=== PATIENT | male | born 1945 | race Caucasian/White ===

== ENCOUNTER 2016-09-26 20:05 | Observation (INO) ==
[2016-09-26 21:20] LABS: Basophils # 0.1 K/mcL (0.0-0.2); Basophils % 0.6 %; Eosinophils # 0.2 K/mcL (0.0-0.6); Eosinophils % 1.7 %; Hematocrit 25.9 % (37.5-50.1); Immature Granulocytes % 0.7 % (0-4); Lymphocytes # 1.7 K/mcL (0.6-4.6); Lymphocytes % 16.4 %; Mean Corpuscular HGB Conc 24.7 g/dL (31.6-35.5); Mean Corpuscular Hemoglobin 16.1 pg (28.0-33.3); Mean Corpuscular Volume 65.1 fL (83.0-100.0); Mean Platelet Volume 9.1 fL (9.4-12.4); Monocytes % 9.1 %; Neutrophils # 7.5 K/mcL (1.6-8.9); Nucleated Red Blood Cells 0.2 /100 WBC (0); Platelet Count 352 K/mcL (140-400); Red Blood Count 3.98 M/mcL (4.19-5.50); Red Cell Distribution Width 20.1 % (11.5-14.5); Segmented Neutrophils % 71.5 %
[2016-09-26 21:32] LABS: BUN/Creatinine Ratio 11 (6-26); Blood Urea Nitrogen 14 mg/dL (8-26); Calcium 9.1 mg/dL (8.6-10.8); Carbon Dioxide 24 mEq/L (19-29); Chloride 107 mEq/L (98-109); Glucose 90 mg/dL (70-99); Osmolality,Calculated 288 (280-300); Potassium 4.3 mEq/L (3.5-4.5); Sodium 139 mEq/L (136-145); eGFR For African Americans > 60 (> 60); eGFR For Non-African Americans 54 (> 60)
[2016-09-26 21:37] LABS: Hemoglobin 6.4 g/dL (12.9-16.9)
--- NOTE | 2016-09-26 21:40 | Emergency Department Note ---
Disposition Clinical Impression: Symptomatic anemia Abdominal aortic aneurysm Qualifiers: Presence of rupture: without rupture Qualified Code(s): I71.4 - Abdominal aortic aneurysm, without rupture Disposition: Admitted As Inpatient Condition: Good Referrals: Deborah Hodges MD [Primary Care Provider] - Forms: ED Satisfaction Letter Recheck wound or abnormal lab - General Chief Complaint: ED Recheck/Abnormal Lab/Rx Stated Complaint: Abnormal labs Time Seen by Provider: 09/26/16 21:09 Source: patient Mode of arrival: private vehicle Limitations: no limitations Nursing Notes Reviewed: Yes Vital Signs Reviewed: Yes - History of Present Illness HPI Narrative: 71-year-old male history of hypertension, CAD who presents to the ER with a chief complaint of abnormal labs. Patient states today he went to see his wood grainer who performed labs. States he was called because his blood levels were low. He reports for the last 2 weeks that he has felt dizzy as well as short of breath with activity. He states they thought it was his blood pressure medication and stopped it. He reports improvement of the dizziness but still had dyspnea on exertion. He denies any change of bowel function. Denies melena or hematochezia. He is not on any anticoagulation or antiplatelet therapy. No history of GI bleed or transfusion requirement in the past. No other complaints. Pt Subjective Complaint: abnormal lab(s) Initial Visit (ago): hour(s) Returns Today for: other (Abnormal lab value) Symptoms Since Prior Visit: no new symptoms Context: called for abnormal lab result Associated symptoms: shortness of breath - Related Data Home Medications Medication Instructions Recorded Confirmed No Known Home Drugs 09/26/16 09/26/16 Allergies Allergy/AdvReac Type Severity Reaction Status Date / Time No Known Allergies Allergy Verified 09/26/16 20:56 All systems ED: reviewed and negative except as stated. Constitutional: Denies: fever Cardiovascular: Reports: dyspnea on exertion. Denies: chest pain Respiratory: Reports: dyspnea. Denies: cough, wheezes Gastrointestinal: Denies: abdominal pain, nausea, vomiting Musculoskeletal: Denies: back pain, neck pain Past Medical History - Past Medical History Attestation: Yes The following information was validated with the patient. Source: patient Medical history: Reports: hypertension, renal disease Surgical history: Reports: non-contributory Psychiatric history: Reports: no psych history - Social History Smoking Status: Former smoker Smokeless Tobacco Status: No Alcohol use: Reports: none Drug use: Reports: none Physical Exam - General Limitations: no limitations General appearance: alert, in no apparent distress - Head Head exam: atraumatic, normocephalic, normal inspection - Eye Eye exam: Present: normal appearance - ENT ENT exam: normal exam - Neck Neck exam: Present: normal inspection - Chest Chest inspection: Present: normal inspection, symmetric chest wall rise - Respiratory Respiratory exam: Present: normal lung sounds bilaterally - Cardiovascular Cardiovascular exam: Present: regular rate, normal rhythm, normal heart sounds - Abdominal Exam Abdominal exam: Present: soft, Non-Tender. Absent: tenderness - Extremities Exam Extremities exam: Present: normal inspection, full ROM - Expanded Upper Extremity Exam Shoulder exam: Present: normal inspection, full ROM Arm exam: Present: normal inspection, full ROM Elbow exam: Present: normal inspection, full ROM Forearm/Wrist exam: Present: normal inspection, full ROM Hand exam: Present: normal inspection, full ROM - Expanded Lower Extremity Exam Hip/Pelvis exam: Present: normal inspection, full ROM Upper leg exam: Present: normal inspection, full ROM Knee exam: Present: normal inspection, full ROM Lower leg exam: Present: normal inspection, full ROM Ankle exam: Present: normal inspection, full ROM Foot/toe exam: Present: normal inspection, full ROM - Neurological Exam Neurological exam: Present: alert - Psychiatric Psychiatric exam: Present: normal affect, normal mood - Skin Skin exam: Present: warm, dry, intact, normal color Course Course Narrative: Patient seen and examined. Vital signs reviewed. His prior blood work shows a hemoglobin of 6.2. He was also stool occult positive at that time. We will order a unit of blood and repeat labs. Patient will require admission to the hospital. Vital Signs Temperature 99.0 F 09/26/16 20:31 Pulse Rate 81 09/26/16 20:31 Respiratory Rate 18 09/26/16 20:31 Blood Pressure 160/86 09/26/16 20:31 O2 Sat by Pulse Oximetry 96 09/26/16 20:31 Temperature 98.3 F 09/26/16 22:32 Pulse Rate 84 09/26/16 22:32 Respiratory Rate 18 09/26/16 22:32 Blood Pressure 152/78 09/26/16 22:32 O2 Sat by Pulse Oximetry 95 09/26/16 21:47 Oxygen Delivery Oxygen Delivery Room Air Recheck wound or abnormal lab - MDM Narrative Medical decision making narrative: 71-year-old male presents to the ER due to dyspnea on exertion and abnormal laboratories. Found to have a hemoglobin of 6.2 today. Stool occult positive for blood. He is not on any anticoagulation. Coags are normal. Given 1 unit of blood here in the ER. Accepted to the hospitalist service. - Lab Data Lab results reviewed: Yes I reviewed the patient's lab results. Result diagrams: 09/26/16 21:10 09/26/16 21:10 Lab Results 09/26/16 09/26/16 09/26/16 Range/Units 21:10 21:10 21:10 WBC 10.5 (4.3-11.1) K/mcL RBC 3.98 L (4.19-5.50) M/mcL Hgb 6.4 L (12.9-16.9) g/dL Hct 25.9 L (37.5-50.1) % MCV 65.1 L (83.0-100.0) fL MCH 16.1 L (28.0-33.3) pg MCHC 24.7 L (31.6-35.5) g/dL RDW 20.1 H (11.5-14.5) % Plt Count 352 (140-400) K/mcL MPV 9.1 L (9.4-12.4) fL Immature Gran % 0.7 (0-4) % Seg Neutrophils % 71.5 % Lymphocytes % 16.4 % Monocytes % 9.1 % Eosinophils % 1.7 % Basophils % 0.6 % Neutrophils # 7.5 (1.6-8.9) K/mcL Lymphocytes # 1.7 (0.6-4.6) K/mcL Monocytes # 1.0 (0.0-1.3) K/mcL Eosinophils # 0.2 (0.0-0.6) K/mcL Basophils # 0.1 (0.0-0.2) K/mcL Nucleated RBCs/100 WBC 0.2 H (0) /100 WBC Platelet Estimate Normal (Normal) Hypochromasia Present A (Not Present) Anisocytosis 2+ A (Not Present) Microcytosis Present A (Not Present) PT (9.4-12.1) Seconds INR Sodium 139 (136-145) mEq/L Potassium 4.3 (3.5-4.5) mEq/L Chloride 107 (98-109) mEq/L Carbon Dioxide 24 (19-29) mEq/L BUN 14 (8-26) mg/dL Creatinine 1.31 H (0.72-1.25) mg/dL Est GFR ( Amer) > 60 (> 60) Est GFR (Non-Af Amer) 54 L (> 60) BUN/Creatinine Ratio 11 (6-26) Glucose 90 (70-99) mg/dL Calculated Osmolality 288 (280-300) Calcium 9.1 (8.6-10.8) mg/dL Blood Type O POSITIVE Antibody Screen NEGATIVE Crossmatch See Detail 09/26/16 Range/Units 21:10 WBC (4.3-11.1) K/mcL RBC (4.19-5.50) M/mcL Hgb (12.9-16.9) g/dL Hct (37.5-50.1) % MCV (83.0-100.0) fL MCH (28.0-33.3) pg MCHC (31.6-35.5) g/dL RDW (11.5-14.5) % Plt Count (140-400) K/mcL MPV (9.4-12.4) fL Immature Gran % (0-4) % Seg Neutrophils % % Lymphocytes % % Monocytes % % Eosinophils % % Basophils % % Neutrophils # (1.6-8.9) K/mcL Lymphocytes # (0.6-4.6) K/mcL Monocytes # (0.0-1.3) K/mcL Eosinophils # (0.0-0.6) K/mcL Basophils # (0.0-0.2) K/mcL Nucleated RBCs/100 WBC (0) /100 WBC Platelet Estimate (Normal) Hypochromasia (Not Present) Anisocytosis (Not Present) Microcytosis (Not Present) PT 13.2 H (9.4-12.1) Seconds INR 1.2 Sodium (136-145) mEq/L Potassium (3.5-4.5) mEq/L Chloride (98-109) mEq/L Carbon Dioxide (19-29) mEq/L BUN (8-26) mg/dL Creatinine (0.72-1.25) mg/dL Est GFR ( Amer) (> 60) Est GFR (Non-Af Amer) (> 60) BUN/Creatinine Ratio (6-26) Glucose (70-99) mg/dL Calculated Osmolality (280-300) Calcium (8.6-10.8) mg/dL Blood Type Antibody Screen Crossmatch - Radiology Data Radiology results reviewed: Yes I reviewed the patient's radiology results. Abdomen/Pelvis CT 09/26/16 21:55 IMPRESSION: Diverticulosis coli without evidence of diverticulitis. Infrarenal abdominal aortic aneurysm. RECOMMENDATIONS: Managing Abdominal Aortic Aneurysms 2.6-2.9 cm: 5 year follow up. 3.0-3.4 cm: 3 year follow up 3.5-3.9 cm: 1 year follow up. 4.0-4.4 cm: 1 year follow up. Recommend vascular consultation. 4.5-5.4 cm: 6 month follow up. Recommend vascular consultation. Greater than or equal to 5.5 cm: Referral to vascular surgeon. Reference: Froylan et al. The care of patients with an abdominal aortic aneurysm: The Society of Vascular Surgery practice guidelines. Journal of Vascular Surgery. Vol 50, Number 85. Mu et al. Managing Incidental Findings on Abdominal and Pelvic CT and MRI, Part 2: White Paper of the ACR Incidental Findings Committee II on Vascular Findings. J Am Dru Radiol 2013;10:789-794 D/ / Romeo Garg MD / Romeo Garg MD Interpreting Provider: Romeo Garg MD Chest X-Ray 09/26/16 21:55 IMPRESSION: No acute abnormality detected D/ / Romeo Garg MD / Romeo Garg MD Interpreting Provider: Romeo Garg MD - EKG Data EKG attestation: Yes I reviewed and interpreted this EKG. EKG results narrative: EKG demonstrates sinus rhythm with rate of 82 bpm. Normal axis. NM interval 168 QRS duration [address] elevations or depressions. No acute ischemic findings. S.B.A.R. - S.B.A.R. Situation: Demographics, MOA Background: Presenting Complaint, Relevant PMH, Meds, & Allergies Assessment: Vital Signs, Course and respsone to treatment, Exam Concerns, Patient/Family Expectation, Pertinant Lab Results, Outstanding Labs Recommendation: Barrier(s) to disposition, Recommendation based on pending studies, treatments, or consults S.B.A.R. Report Given to: Hospitalist, request chest x-ray and CT scan of the abdomen and pelvis Attestation Statement - Attestation Attestation: I, Panfilo Sage MD, personally evaluated this patient and discussed their management with the resident physician. I reviewed the resident's note and agree with the documented findings, medical decision making, and plan of care. 71-year-old male presents to the emergency department with a complaint of anemia. Patient complains of increasing soreness of breath with exertion over the past 4-6 weeks. He also complains of dizziness with standing or moving around. No syncope. No GI bleed symptoms. No abnormal bruising or bleeding. He was apparently seen earlier today at an outside facility and had lab work and was found to have a hemoglobin of 6.2. He was called and advised come to the emergency department to receive blood transfusions. He also had a Hemoccult test today which was positive. He has a history of a colonoscopy several years ago with removal of multiple polyps. Patient states that he has no known prior history of anemia however he had lab work on month ago which showed a hemoglobin of 7.0. On examination patient is a well-developed well-nourished well-appearing male in no acute distress. He is alert and oriented 3. There is no cyanosis or diaphoresis. Breath sounds are clear and equal bilaterally. Heart regular rate and rhythm. Abdomen soft with normal bowel sounds. There is mild mid abdominal tenderness with no guarding or rebound tenderness. Labs reviewed. Hemoglobin here tonight is 6.4. The hospitalist was consulted and accepted admission of the patient. They did request a CT of the abdomen and pelvis and chest x-ray which was ordered.
[2016-09-26 21:45] LABS: Hypochromasia Present (Not Present); Microcytosis Present (Not Present); Platelet Estimate Normal (Normal)
[2016-09-26 21:46] LABS: Anisocytosis 2+ (Not Present)
[2016-09-26 21:50] LABS: INR 1.2; Prothrombin Time 13.2 Seconds (9.4-12.1)
[2016-09-26] MEDS ORDERED: 0.9 % Sodium Chloride 1,000 ML ONE (22:15)
[2016-09-26] MEDS ORDERED: Naloxone 0.4 MG/ML INJ IVP PRN (23:07)
--- NOTE | 2016-09-26 23:14 | Internal Med History&Physical ---
Date of Encounter: 09/26/16 Time of Encounter: 22:30 Assessment and Plan (1) JORGE (dyspnea on exertion) Current visit: Yes Status: Acute Secondary to symptomatic anemia. CXR negative. Please see further management of symptomatic anemia, below. Supplemental oxygen ordered PRN, but patient is saturating well at this time/in NAD. (2) Symptomatic anemia Current visit: Yes Status: Acute +fatigue and dyspnea on exertion. Hb 6.2. Transfuse 2 units of PRBCS. +Guaic stools suggestive of GI bleed. No serial hb/hct given chronicity of anemia (hb was 7.0 1 month ago). Check hb in the a.m. Consult GI for possible EGD/ Colonoscopy. (3) GI bleed Current visit: Yes Status: Acute No melanotic or bloody stools, but positive hemoccult stool in ED. Will treat as an upper GI bleed with 80 Protonix IV q12 hours, pending GI evaluation. Likely EGD/Colonoscopy, concern for possible colon cancer despite lack of constitutional symptoms. CT abd/pelvis reveals no mass. Transfuse PRBCs as per above. Qualifiers: GI bleed type/associated pathology: unspecified gastrointestinal hemorrhage type Qualified Code(s): K92.2 - Gastrointestinal hemorrhage, unspecified (4) Hypertension Current visit: Yes Status: Acute Not taking antihypertensives at home. Will order Hydralazine 10 mg IV q4 hours PRN. Qualifiers: Hypertension type: essential hypertension Qualified Code(s): I10 - Essential (primary) hypertension (5) CKD (chronic kidney disease) stage 3, GFR 30-59 ml/min Current visit: Yes Status: Acute avoid nephrotoxic agents Internal Medicine - H&P: HPI Chief complaint: shortness of breath on exertion Admitted From: Home Plans for Post Hospital Care: Home History of present illness: Mr. Gaming is a 71 year old male with PMH HTN, infrarenal aortic aneurysm, colonic polyps who presents with increasing shortness of breath on exertion and lightheadedness. Symptoms started a few months ago and son attributed this to "old age." He has been short of breath on walking 100+ feet or so uphill. No cough, chest pain or palpitations. No syncopal events. He was found to have a hemoglobin of 6.2. He was noted to have a hb of 7 on 08/25/16 (but no hemoglobin results available for comparison prior to this). He was hemoccult positive in the ED, but denies any dark stools, heartburn, bloody stools or any changes in his bowel movements. He also denies any appetite changes, weight loss or night sweats. No emesis. He was experiencing lightheadedness upon standing, but stopped taking his BP meds and this resolved. Past Med Surg Social Fam HX - Past Medical History Medical history: hypertension, renal disease Psychiatric history: no psych history - Past Surgical History Surgical History: non-contributory - Social History Smoking Status: Former smoker Smokeless Tobacco Status: No Alcohol use: none Drug use: none Internal Medicine - H&P: Meds No Known Home Drugs 09/26/16 [History] Allergies No Known Allergies Allergy (Verified 09/26/16 20:56) All Systems PM: A 10-system review of systems was performed and is negative for pertinent findings except as documented above in the HPI. - Constitutional Constitutional: as per HPI, fatigue, no anorexia, no excessive sweating - EENT Eyes: no blurry vision - Cardiovascular Cardiovascular ROS IM: as per HPI, dyspnea on exertion, lightheadedness, no chest pain, no edema Additional comments: on standing - Respiratory Respiratory: no cough, no wheezing - Gastrointestinal Gastrointestinal: as per HPI, no abdominal pain, no bloating, no change in bowel habits, no hematochezia, no melena - Neurological Neurological ROS: no abnormal gait - Constitutional Vitals: Temp Pulse Resp BP Pulse Ox 98.4 F 81 18 151/82 95 09/26/16 22:47 09/26/16 22:47 09/26/16 23:01 09/26/16 23:01 09/26/16 22:47 General appearance: Present: A&O X 3, pleasant, no acute distress, answers questions appropriately - Head Head exam: Present: atraumatic - ENT ENT exam: Present: mucous membranes moist - Neck Neck exam general surgery: Present: supple - Respiratory Respiratory exam: Present: CTAB - Cardiovascular Cardiovascular exam: Present: RRR, +S1, +S2 - GI/Abdominal GI/Abdominal exam: Present: normal bowel sounds, soft. Absent: mass, tenderness - Extremities Exam Extremities exam: Absent: pedal edema, tenderness - Psychiatric Psychiatric exam: Present: normal affect, normal mood Internal Med - H&P Results - Labs CBC & Chem 7: 09/26/16 21:10 09/26/16 21:10
[2016-09-26 23:25] LABS: % Iron Saturation 28 % (20-55); Iron 138 mcg/dL (65-175); Transferrin 353 mg/dL (174-364)
[2016-09-26 23:45] LABS: Ferritin 5 ng/ml (22-275)
[2016-09-27 01:05] LABS: Bilirubin,Urine Negative (Negative); Blood,Urine Negative (Negative); Clarity,Urine Clear (Clear); Color,Urine Yellow (Yellow); Glucose,Urine (UA) Normal (Normal); Ketones,Urine Negative (Negative); Leukocyte Esterase,Urine Negative (Negative); Nitrite,Urine Negative (Negative); Protein,Urine Negative (Neg-Trace); Specific Gravity,Urine 1.016 (1.010-1.025); Urobilinogen,Urine Normal (Normal)
[2016-09-27] MEDS ORDERED: 0.9 % Sodium Chloride 250 ML ONE (01:41)
[2016-09-27] MEDS ORDERED: Pantoprazole 80 MG in 0.9 % Sodium Chloride 50 ML IVPB SCH (06:00)
[2016-09-27] MEDS ORDERED: Pantoprazole 40 MG VIAL IVP SCH (06:00)
[2016-09-27 07:10] LABS: Alanine Aminotransferase 14 Units/L (0-55); Albumin 3.3 g/dL (3.5-5.0); Alkaline Phosphatase 56 Units/L (38-126); Aspartate Amino Transferase 24 Units/L (5-34); BUN/Creatinine Ratio 11 (6-26); Blood Urea Nitrogen 13 mg/dL (8-26); Carbon Dioxide 27 mEq/L (19-29); Chloride 108 mEq/L (98-109); Globulin 3.2 g/dL (2.4-3.5); Glucose 90 mg/dL (70-99); Osmolality,Calculated 292 (280-300); Potassium 4.2 mEq/L (3.5-4.5); Sodium 141 mEq/L (136-145); Total Protein 6.5 g/dL (6.0-8.3); eGFR For African Americans > 60 (> 60); eGFR For Non-African Americans > 60 (> 60)
[2016-09-27 07:19] LABS: Mean Platelet Volume 10.1 fL (9.4-12.4)
[2016-09-27 07:20] LABS: Basophils # 0.1 K/mcL (0.0-0.2); Basophils % 0.9 %; Eosinophils # 0.3 K/mcL (0.0-0.6); Eosinophils % 3.1 %; Hematocrit 29.2 % (37.5-50.1); Immature Granulocytes % 0.6 % (0-4); Lymphocytes # 2.1 K/mcL (0.6-4.6); Lymphocytes % 24.5 %; Mean Corpuscular HGB Conc 27.4 g/dL (31.6-35.5); Mean Corpuscular Hemoglobin 18.9 pg (28.0-33.3); Monocytes # 0.7 K/mcL (0.0-1.3); Neutrophils # 5.4 K/mcL (1.6-8.9); Platelet Count 325 K/mcL (140-400); Red Blood Count 4.23 M/mcL (4.19-5.50); Red Cell Distribution Width 24.1 % (11.5-14.5); Segmented Neutrophils % 62.9 %
[2016-09-27 07:51] LABS: Anisocytosis 2+ (Not Present); Hypochromasia Present (Not Present)
[2016-09-27 07:52] LABS: Microcytosis Present (Not Present); Polychromasia 1+ (Not Present)
--- NOTE | 2016-09-27 08:31 | Gastroenterology Consult Note ---
<Gabriela Jo - Last Filed: 09/27/16 11:36> Date of Encounter: 09/27/16 Time of Encounter: 10:35 - Assessment and plan (1) Symptomatic anemia Current Visit: Yes Status: Acute Assessment and plan: + hemoccult. EGD/Colon tomorrow to r/o esophagitis, gastritis, duodenitis, PUD, AVM, varices, tumor, polyps, diverticular bleeding, colitis, anorectal pathology. - Time Spent With Patient Total time spent is greater than 50% in coordination of care (as documented) at patient's floor/unit and/or counseling patient: less than 15 minutes GI History of Present Illness - Data of Consult Patient: new to practice Consult date: 09/27/16 Requesting Physician: Cesar Hall MD - Consult Narrative Reason for consult: anemia History of present illness: Mr. Gaming is a 71 year old male with PMH of HTN, infrarenal aortic aneurysm, colonic polyps who presents with increasing shortness of breath on exertion and lightheadedness. Symptoms started a few months ago and son attributed this to "old age." He has been short of breath on walking 100+ feet or so uphill. No cough, chest pain or palpitations. No syncopal events. He was found to have a hemoglobin of 6.2 after being evaluated by his PCP for these complaints. He was hemoccult positive in the ED, but denies any dark stools, heartburn, bloody stools or any changes in his bowel movements. He also denies any appetite changes, weight loss or night sweats. No emesis. He was experiencing lightheadedness upon standing, but stopped taking his BP meds and this resolved. Iron wnl. Patient receiving 3 units PRBC, currently hgb at 8.0. His last Cscope was with Dr. Merritt in 2013 which revealed numerous colonic polyps ranging from 2-8mm. He did have a 16mm tubulovillous adenoma removed at that time. Cscope also showed diverticulosis and internal hemorrhoids per the medical record. Patient denies black stools or blood noted in stools. He does admit intermittent epigastric abdominal pain. No other UGI symptoms admitted. Anemia was discovered by nephrology after PCP sent patient to icd 9 coder for kidney dysfunction, per the patient, icd 9 coder indicated kidneys were 'fine' and referred patient to ED when hgb came back so low. Colonoscopy: 2013 - [facility] - tubulovillous adenoma 16 mm, tubular adenomas 2-8mm EGD: None Past Med Surg Social Fam HX - Past Medical History Medical history: hypertension, renal disease Psychiatric history: no psych history - Past Surgical History Surgical History: non-contributory - Social History Smoking Status: Former smoker Smokeless Tobacco Status: No Alcohol use: none Drug use: none - Family History Sister Family Member Ethnicity: Non- Living Status: Still Living Hx Family Cardiac Disorders: Yes (Stroke) Mother Living Status: Age at : 70 Cause of : Old age Father Family Member Ethnicity: Non- Living Status: Age at : 86 Cause of : Old age - Gastrointestinal NSAID use: None noted Anticoagulation Use: None noted Number of BM Per Day: every day or two, can have 2 BM in one day Gastrointestinal: Present: abdominal pain - Constitutional Constitutional: fatigue - EENT Eyes: as per HPI Ears: Present: as per HPI Nose, mouth and throat: Present: as per HPI - Cardiovascular Cardiovascular ROS: Present: as per HPI - Respiratory Respiratory IM: Present: as per HPI - Neurological ROS Neurological GI: Present: as per HPI - Hematologic/Lymphatic Hematologic/Lymphatic pediatric: Present: as per HPI - Musculoskeletal Musculoskeletal ROS GI: Present: as per HPI - Integumentary Integumentary GI: Present: as per HPI - Psychiatric ROS Psychiatric GI: Present: as per HPI - Endocrine Endocrine IM: Present: as per HPI - Constitutional Vitals: Temp Pulse Resp BP Pulse Ox 98.1 F 76 15 161/87 97 09/27/16 07:00 09/27/16 07:00 09/27/16 07:00 09/27/16 07:00 09/27/16 07:00 General appearance: Present: cooperative, A&O X 3, no acute distress, answers questions appropriately - Head Head exam: Present: atraumatic, normocephalic - Eye Eye exam: Present: normal appearance, sclera anicteric - ENT ENT exam: Present: mucous membranes moist - Neck Neck exam general surgery: Present: normal inspection, trachea midline - Respiratory Respiratory exam: Present: CTAB - Cardiovascular Cardiovascular exam: Present: RRR, +S1, +S2 - GI/Abdominal GI/Abdominal exam: Present: normal bowel sounds, soft, no peritoneal signs - Rectal Rectal exam: Present: deferred - Extremities Exam Extremities exam: Present: warm - Neurological Exam Neurological exam: Present: no focal deficits - Psychiatric Psychiatric exam: Present: normal affect, normal mood - Skin Skin exam: Present: dry, intact, normal color, warm Results - Labs CBC & Chem 7: 09/27/16 06:25 09/27/16 06:25 Labs: Last Result Calcium 9.0 mg/dL (8.6-10.8) 09/27/16 06:25 Iron 138 mcg/dL (65-175) 09/26/16 21:10 % Saturation 28 % (20-55) 09/26/16 21:10 Transferrin 353 mg/dL (174-364) 09/26/16 21:10 Ferritin 5 ng/ml (22-275) L 09/26/16 21:10 Entire Visit Hgb 8.0 g/dL (12.9-16.9) L D 09/27/16 06:25 Hct 29.2 % (37.5-50.1) L 09/27/16 06:25 PT 13.2 Seconds (9.4-12.1) H 09/26/16 21:10 Ferritin 5 ng/ml (22-275) L 09/26/16 21:10 Total Bilirubin 1.0 mg/dL (0.2-1.2) 09/27/16 06:25 AST 24 Units/L (5-34) 09/27/16 06:25 ALT 14 Units/L (0-55) 09/27/16 06:25 - ABG ABG results: PT/INR, D-dimer PT 13.2 Seconds (9.4-12.1) H 09/26/16 21:10 Consult Discharge Plan - Plan Referrals: Deborah Hodges MD [Primary Care Provider] - 10/09/16 9:15 am (Please follow up as scehdule...) <James Ca - Last Filed: 09/27/16 17:50> Date of Encounter: 09/27/16 Time of Encounter: 18:00 - Time Spent With Patient Total time spent is greater than 50% in coordination of care (as documented) at patient's floor/unit and/or counseling patient: GI History of Present Illness - Data of Consult Requesting Physician: Cesar Hall MD - Consult Narrative History of present illness: Mr. Gaming is a 71 year old male - Constitutional Vitals: Temp Pulse Resp BP Pulse Ox 97.7 F 73 16 152/80 92 09/27/16 15:00 09/27/16 15:00 09/27/16 15:00 09/27/16 15:00 09/27/16 15:00 Results - Labs CBC & Chem 7: 09/27/16 15:42 09/27/16 06:25 Labs: Last Result Calcium 9.0 mg/dL (8.6-10.8) 09/27/16 06:25 Iron 138 mcg/dL (65-175) 09/26/16 21:10 % Saturation 28 % (20-55) 09/26/16 21:10 Transferrin 353 mg/dL (174-364) 09/26/16 21:10 Ferritin 5 ng/ml (22-275) L 09/26/16 21:10 Vitamin B12 197 pg/mL (213-816) L 09/27/16 06:25 Folate 11.7 ng/mL (7.0-31.4) 09/27/16 06:25 Entire Visit Hgb 8.2 g/dL (12.9-16.9) L 09/27/16 15:42 Hct 29.6 % (37.5-50.1) L 09/27/16 15:42 PT 13.2 Seconds (9.4-12.1) H 09/26/16 21:10 Ferritin 5 ng/ml (22-275) L 09/26/16 21:10 Total Bilirubin 1.0 mg/dL (0.2-1.2) 09/27/16 06:25 AST 24 Units/L (5-34) 09/27/16 06:25 ALT 14 Units/L (0-55) 09/27/16 06:25 Folate 11.7 ng/mL (7.0-31.4) 09/27/16 06:25 - ABG ABG results: PT/INR, D-dimer PT 13.2 Seconds (9.4-12.1) H 09/26/16 21:10 - Attending Attestation I examined this patient and my medical decision-making was reviewed with the Resident Physician. I agree with the documented findings, disposition and treatment plan as described except to the extent set forth below.
[2016-09-27 10:33] LABS: Folate 11.7 ng/mL (7.0-31.4)
--- NOTE | 2016-09-27 13:22 | Internal Med Progress Note ---
<Olivier Figueroa - Last Filed: 09/27/16 13:13> Date of Encounter: 09/27/16 Time of Encounter: 13:14 - Assessment and plan (1) JORGE (dyspnea on exertion) Current Visit: Yes Status: Acute Assessment and plan: dyspnea upon exertion likely secondary to symptomatic anemia from GI blood loss. Upon admission, patient had Hg of 6.4, s/p two units of PRBCs transfused. Patient remains stable currently. Plan: appreciate GI recommendations. Will re check H/H later this afternoon and continue to monitor. Continue clear liquid diet today. Will do colonoscopy prep today. EGD/colonoscopy tomorrow to evaluate GI bleed. (2) Symptomatic anemia Current Visit: Yes Status: Acute Assessment and plan: plan as above (3) GI bleed Current Visit: Yes Status: Acute Assessment and plan: plan as #1 above Qualifiers: GI bleed type/associated pathology: unspecified gastrointestinal hemorrhage type Qualified Code(s): K92.2 - Gastrointestinal hemorrhage, unspecified (4) Hypertension Current Visit: Yes Status: Acute Assessment and plan: patient states he has a history of hypertension but patient stopped taking all of his medications. pharmacy attempting to find out what his home medication he takes, and will resume. continue hydralazine PRN Qualifiers: Hypertension type: essential hypertension Qualified Code(s): I10 - Essential (primary) hypertension (5) CKD (chronic kidney disease) stage 3, GFR 30-59 ml/min Current Visit: Yes Status: Acute Assessment and plan: Stable. continue to monitor (6) DVT prophylaxis Current Visit: Yes Status: Acute Assessment and plan: EPCDs - Subjective Interval history: 71 year old male evaluated at bedside. Patient had no acute events overnight. He was admitted for GI bleed with hemoccult positive stools and low hemoglobin. patient denies having blood in his stools and denies having dark/tarry stools. he denies taking ibuprofen, denies history of alcohol abuse or history of cirrhosis. he states his last colonoscopy was about two years ago and he had several polyps remove at that time. Today he says he feels ok. He denies nausea , vomiting, diarrhea, fever, chills. HE denies shortness of breath at rest. - Constitutional Vitals: Temp Pulse Resp BP Pulse Ox 97.9 F 75 16 161/81 96 09/27/16 11:00 09/27/16 11:00 09/27/16 11:00 09/27/16 11:00 09/27/16 11:00 General appearance: Present: A&O X 3, pleasant, no acute distress, answers questions appropriately - Head Head exam: Present: atraumatic, normocephalic - Neck Neck exam general surgery: Present: supple, trachea midline - Respiratory Respiratory exam: Present: CTAB - Cardiovascular Cardiovascular exam: Present: RRR, +S1, +S2 - GI/Abdominal GI/Abdominal exam: Present: normal bowel sounds, soft. Absent: distended Additional comments: mild epigastric tenderness upon palpation. - Extremities Exam Extremities exam: Absent: cyanotic, pedal edema - Neurological Exam Neurological exam: Present: alert, oriented X3, no focal deficits - Psychiatric Psychiatric exam: Present: normal affect, normal mood Internal Medicine: Result - Labs CBC & Chem 7: 09/27/16 06:25 09/27/16 06:25 Labs: Short CBC 09/27/16 Range/Units 06:25 WBC 8.6 (4.3-11.1) K/mcL Hgb 8.0 L D (12.9-16.9) g/dL Hct 29.2 L (37.5-50.1) % Plt Count 325 (140-400) K/mcL Neutrophils # 5.4 (1.6-8.9) K/mcL BMP 09/27/16 06:25 Sodium 141 Potassium 4.2 Chloride 108 Carbon Dioxide 27 BUN 13 Creatinine 1.16 Glucose 90 Calcium 9.0 Liver Function 09/27/16 Range/Units 06:25 Total Bilirubin 1.0 (0.2-1.2) mg/dL AST 24 (5-34) Units/L ALT 14 (0-55) Units/L Alkaline Phosphatase 56 (38-126) Units/L Albumin 3.3 L (3.5-5.0) g/dL Urine 09/26/16 Range/Units 23:09 Urine Color Yellow (Yellow) Urine Clarity Clear (Clear) Urine pH 6.0 (5.0-8.0) pH Units Ur Specific [place] 1.016 (1.010-1.025) Urine Protein Negative (Neg-Trace) mg/dL Urine Glucose (UA) Normal (Normal) mg/dL - ABG Interpretation ABG results: PT/INR, D-dimer PT 13.2 Seconds (9.4-12.1) H 09/26/16 21:10 Consult Discharge Plan - Plan Referrals: Deborah Hodges MD [Primary Care Provider] - 10/09/16 9:15 am (Please follow up as scelotus...) <Cesar Hall T - Last Filed: 09/27/16 15:30> Date of Encounter: 09/27/16 - Constitutional Vitals: Temp Pulse Resp BP Pulse Ox 97.9 F 75 16 161/81 96 09/27/16 11:00 09/27/16 11:00 09/27/16 11:00 09/27/16 11:00 09/27/16 11:00 Internal Medicine: Result - Labs CBC & Chem 7: 09/27/16 06:25 09/27/16 06:25 Labs: Short CBC 09/27/16 Range/Units 06:25 WBC 8.6 (4.3-11.1) K/mcL Hgb 8.0 L D (12.9-16.9) g/dL Hct 29.2 L (37.5-50.1) % Plt Count 325 (140-400) K/mcL Neutrophils # 5.4 (1.6-8.9) K/mcL BMP 09/27/16 06:25 Sodium 141 Potassium 4.2 Chloride 108 Carbon Dioxide 27 BUN 13 Creatinine 1.16 Glucose 90 Calcium 9.0 Liver Function 09/27/16 Range/Units 06:25 Total Bilirubin 1.0 (0.2-1.2) mg/dL AST 24 (5-34) Units/L ALT 14 (0-55) Units/L Alkaline Phosphatase 56 (38-126) Units/L Albumin 3.3 L (3.5-5.0) g/dL Urine 09/26/16 Range/Units 23:09 Urine Color Yellow (Yellow) Urine Clarity Clear (Clear) Urine pH 6.0 (5.0-8.0) pH Units Ur Specific [place] 1.016 (1.010-1.025) Urine Protein Negative (Neg-Trace) mg/dL Urine Glucose (UA) Normal (Normal) mg/dL - ABG Interpretation ABG results: PT/INR, D-dimer PT 13.2 Seconds (9.4-12.1) H 09/26/16 21:10 - Attending Attestation I examined this patient and my medical decision-making was reviewed with the Resident Physician on 09/27/16. I agree with the documented findings, disposition and treatment plan as described except to the extent set forth below. 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
[2016-09-27 15:58] LABS: Basophils % 0.9 %; Hemoglobin 8.2 g/dL (12.9-16.9); Lymphocytes % 28.2 %; Mean Platelet Volume 9.3 fL (9.4-12.4)
[2016-09-27 16:00] LABS: Basophils # 0.1 K/mcL (0.0-0.2); Eosinophils # 0.3 K/mcL (0.0-0.6); Eosinophils % 3.4 %; Hematocrit 29.6 % (37.5-50.1); Immature Granulocytes % 0.6 % (0-4); Lymphocytes # 2.2 K/mcL (0.6-4.6); Mean Corpuscular HGB Conc 27.7 g/dL (31.6-35.5); Mean Corpuscular Hemoglobin 19.2 pg (28.0-33.3); Mean Corpuscular Volume 69.2 fL (83.0-100.0); Monocytes # 0.8 K/mcL (0.0-1.3); Monocytes % 10.4 %; Neutrophils # 4.5 K/mcL (1.6-8.9); Nucleated Red Blood Cells 0.3 /100 WBC (0); Platelet Count 296 K/mcL (140-400); Red Blood Count 4.28 M/mcL (4.19-5.50); Red Cell Distribution Width 24.4 % (11.5-14.5); Segmented Neutrophils % 56.5 %
[2016-09-27] MEDS: Pantoprazole 40 MG VIAL IVP SCH (16:35)
[2016-09-27 16:50] LABS: Anisocytosis 2+ (Not Present); Hypochromasia Present (Not Present); Microcytosis Present (Not Present); Polychromasia 1+ (Not Present)
[2016-09-27] MEDS ORDERED: Polyethylene Glycol 3350 255 GM POWDER PO ONE (17:00)
--- NOTE | 2016-09-27 21:55 | Electrocardiograph Report ---
[place] [id number] Test Date: 2016-09-26 Pat Name: Lukas Gaming Department: [id number] Room: 2A22 Gender: M Felt Puller: TONIA : 1945 Requested By: Panfilo Sage Order Number: [id number] Reading MD: Karena Parekh Measurements Intervals [place] Rate: 82 P: 63 RI: 168 QRS: 32 QRSD: 102 T: 47 QT: 375 QTc: 414 Interpretive Statements SINUS RHYTHM Electronically Signed On 09-27-2016 21:54:11 EDT by Karena Parekh
[2016-09-28 04:13] LABS: Hematocrit 29.7 % (37.5-50.1); Hemoglobin 8.1 g/dL (12.9-16.9); Immature Granulocytes % 0.5 % (0-4); Mean Corpuscular HGB Conc 27.3 g/dL (31.6-35.5); Mean Corpuscular Hemoglobin 18.8 pg (28.0-33.3)
[2016-09-28 04:14] LABS: Basophils # 0.1 K/mcL (0.0-0.2); Basophils % 0.6 %; Eosinophils # 0.4 K/mcL (0.0-0.6); Eosinophils % 4.4 %; Lymphocytes # 1.9 K/mcL (0.6-4.6); Mean Corpuscular Volume 68.9 fL (83.0-100.0); Mean Platelet Volume 9.6 fL (9.4-12.4); Monocytes # 0.8 K/mcL (0.0-1.3); Monocytes % 9.3 %; Neutrophils # 5.2 K/mcL (1.6-8.9); Platelet Count 303 K/mcL (140-400); Red Blood Count 4.31 M/mcL (4.19-5.50); Red Cell Distribution Width 24.5 % (11.5-14.5); Segmented Neutrophils % 62.2 %
[2016-09-28 04:21] LABS: BUN/Creatinine Ratio 8 (6-26); Blood Urea Nitrogen 10 mg/dL (8-26); Carbon Dioxide 27 mEq/L (19-29); Chloride 108 mEq/L (98-109); Glucose 92 mg/dL (70-99); Osmolality,Calculated 289 (280-300); Potassium 4.4 mEq/L (3.5-4.5); Sodium 140 mEq/L (136-145); eGFR For African Americans > 60 (> 60); eGFR For Non-African Americans > 60 (> 60)
[2016-09-28 04:52] LABS: Anisocytosis 2+ (Not Present); Hypochromasia Present (Not Present); Microcytosis Present (Not Present); Platelet Estimate Normal (Normal); Poikilocytosis 1+ (Not Present)
[2016-09-28] MEDS: Pantoprazole 40 MG VIAL IVP SCH (05:49)
[2016-09-28] MEDS ORDERED: *HR* Midazolam HCl 5 MG/5 ML VIAL IVP ONE ×2 (06:35→06:59)
[2016-09-28] MEDS ORDERED: *HR* FentaNYL (PF) 100 MCG/2 ML VIAL ONE ×2 (06:35→07:00)
[2016-09-28] MEDS: *HR* FentaNYL (PF) 100 MCG/2 ML VIAL IVP PRN ×2 (07:20→09:30)
[2016-09-28] MEDS: *HR* Midazolam HCl 5 MG/5 ML VIAL IVP PRN ×2 (07:20→09:30)
[2016-09-28] MEDS ORDERED: Simethicone 40 MG/0.6 ML MLS IR ONE (07:21)
[2016-09-28] MEDS ORDERED: Tetracaine/Benzocaine/Butamben 200MG/SPRAY (100SPY/BOT) MM ONE (07:21)
--- NOTE | 2016-09-28 07:22 | Pre-Sedation Evaluation ---
Pre-sedation evaluation - Pre-sedation checklist Date of procedure: 09/28/16 Procedure: egd colonoscopy Recent Vitals: Last Vital Signs Temp 98.0 F 09/28/16 07:07 Pulse 80 09/28/16 07:07 Resp 17 09/28/16 07:07 BP 181/90 09/28/16 07:07 Pulse Ox 98 09/28/16 07:07 H&P (including ROS) documented in medical record: Yes Previous reaction to sedatives/anesthetics: No Dietary Status: NPO after Midnight Dentition: dentures removed ASA Classification *see protocol: CLASS III-Severe systemic disease Plan of Care: Pt appropriate candidate for procedure/moderate/conscious sedation , Risks/benefits of procedure/sedation discussed w/ patient/family
[2016-09-28] MEDS: Cyanocobalamin (B-12) 1,000 MCG TABLET PO SCH (12:11)
--- NOTE | 2016-09-28 13:12 | Internal Med Progress Note ---
<JobyusOlivier - Last Filed: 09/28/16 13:10> Date of Encounter: 09/28/16 Time of Encounter: 13:10 - Assessment and plan (1) JORGE (dyspnea on exertion) Current Visit: Yes Status: Acute Assessment and plan: dyspnea upon exertion likely secondary to symptomatic anemia from GI blood loss. Upon admission, patient had Hg of 6.4, s/p two units of PRBCs transfused. Patient remains stable currently. EGD showed normal esophagus and two non bleeding angioectasias in stomach that was treated with argon plasma coagulation, normal duodenum. colonoscopy showed three 10mm non bleeding polyps at hepatic flexure that were removed, diverticulosis. biopsies pending. Plan: will re check H/H later this afternoon and continue to monitor. will monitor overnight for acute changes in H/H or signs of rebleeding. discharge tomorrow. continue B12, iron supplementation. (2) Symptomatic anemia Current Visit: Yes Status: Acute Assessment and plan: plan as above (3) GI bleed Current Visit: Yes Status: Acute Assessment and plan: plan as #1 above Qualifiers: GI bleed type/associated pathology: unspecified gastrointestinal hemorrhage type Qualified Code(s): K92.2 - Gastrointestinal hemorrhage, unspecified (4) Hypertension Current Visit: Yes Status: Acute Assessment and plan: patient states he has a history of hypertension but patient stopped taking all of his medications. continue lisinopril continue hydralazine PRN Qualifiers: Hypertension type: essential hypertension Qualified Code(s): I10 - Essential (primary) hypertension (5) CKD (chronic kidney disease) stage 3, GFR 30-59 ml/min Current Visit: Yes Status: Acute Assessment and plan: Stable. continue to monitor (6) DVT prophylaxis Current Visit: Yes Status: Acute Assessment and plan: EPCDs - Subjective Interval history: 71 year old male evaluated at bedside. Patient had no acute events overnight. Patient had EGD/colonoscopy this morning and he tolerated the procedure well. Patient was eating breakfast upon examination. He del nausea, vomiting, dairhea, fever, chills, chest pain, and shortness of breath. He denies any complaints today. - Constitutional Vitals: Temp Pulse Resp BP Pulse Ox 97.9 F 78 16 131/65 96 09/28/16 11:18 09/28/16 11:18 09/28/16 11:18 09/28/16 11:18 09/28/16 11:18 General appearance: Present: A&O X 3, pleasant, no acute distress, answers questions appropriately - Head Head exam: Present: atraumatic, normocephalic - Eye Additional comments: conjunctival pallor present. - ENT ENT exam: Present: mucous membranes moist - Neck Neck exam general surgery: Present: supple, trachea midline - Respiratory Respiratory exam: Present: CTAB - Cardiovascular Cardiovascular exam: Present: RRR, +S1, +S2 - GI/Abdominal GI/Abdominal exam: Present: normal bowel sounds, soft. Absent: distended, tenderness - Extremities Exam Extremities exam: Absent: cyanotic, pedal edema - Neurological Exam Neurological exam: Present: alert, oriented X3, no focal deficits - Skin Skin exam: Present: intact Internal Medicine: Result - Labs CBC & Chem 7: 09/28/16 03:50 09/28/16 03:50 Labs: Short CBC 09/27/16 09/28/16 Range/Units 15:42 03:50 WBC 7.9 8.4 (4.3-11.1) K/mcL Hgb 8.2 L 8.1 L (12.9-16.9) g/dL Hct 29.6 L 29.7 L (37.5-50.1) % Plt Count 296 303 (140-400) K/mcL Neutrophils # 4.5 5.2 (1.6-8.9) K/mcL BMP 09/28/16 03:50 Sodium 140 Potassium 4.4 Chloride 108 Carbon Dioxide 27 BUN 10 Creatinine 1.18 Glucose 92 Calcium 9.0 - ABG Interpretation ABG results: PT/INR, D-dimer PT 13.2 Seconds (9.4-12.1) H 09/26/16 21:10 Consult Discharge Plan - Plan Referrals: Deborah Hodges MD [Primary Care Provider] - 10/09/16 9:15 am (Please follow up as scehdule...) <Cesar Hall - Last Filed: 09/28/16 16:13> Date of Encounter: 09/28/16 - Constitutional Vitals: Temp Pulse Resp BP Pulse Ox 98.2 F 74 18 144/76 96 09/28/16 15:40 09/28/16 15:40 09/28/16 15:40 09/28/16 15:40 09/28/16 15:40 Internal Medicine: Result - Labs CBC & Chem 7: 09/28/16 03:50 09/28/16 03:50 Labs: Short CBC 09/27/16 09/28/16 Range/Units 15:42 03:50 WBC 8.4 (4.3-11.1) K/mcL Hgb 8.1 L (12.9-16.9) g/dL Hct 29.7 L (37.5-50.1) % Plt Count 303 (140-400) K/mcL Neutrophils # 4.5 5.2 (1.6-8.9) K/mcL BMP 09/28/16 03:50 Sodium 140 Potassium 4.4 Chloride 108 Carbon Dioxide 27 BUN 10 Creatinine 1.18 Glucose 92 Calcium 9.0 - ABG Interpretation ABG results: PT/INR, D-dimer PT 13.2 Seconds (9.4-12.1) H 09/26/16 21:10 - Attending Attestation I examined this patient and my medical decision-making was reviewed with the Resident Physician on 09/28/16. I agree with the documented findings, disposition and treatment plan as described except to the extent set forth below. 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 colonoscopy showed three 10mm non bleeding polyps at hepatic flexure that were removed, diverticulosis. biopsies pending. his HB has remained stable, his BP is controlled on lisinopril Monitor for 24 hrs post-EGD RPt Hb a.m Anticipate discharge a.m Rest of details as in resident physician's documentation
[2016-09-28 16:05] LABS: Hemoglobin 8.3 g/dL (12.9-16.9); Mean Platelet Volume 9.4 fL (9.4-12.4); Red Cell Distribution Width 24.8 % (11.5-14.5)
[2016-09-28 16:07] LABS: Basophils # 0.1 K/mcL (0.0-0.2); Eosinophils # 0.3 K/mcL (0.0-0.6); Eosinophils % 3.5 %; Immature Granulocytes % 0.3 % (0-4); Lymphocytes % 21.1 %; Mean Corpuscular HGB Conc 26.8 g/dL (31.6-35.5); Mean Corpuscular Hemoglobin 18.8 pg (28.0-33.3); Mean Corpuscular Volume 70.3 fL (83.0-100.0); Monocytes % 10.2 %; Neutrophils # 4.7 K/mcL (1.6-8.9); Nucleated Red Blood Cells 0.3 /100 WBC (0); Platelet Count 313 K/mcL (140-400); Red Blood Count 4.41 M/mcL (4.19-5.50); Segmented Neutrophils % 63.9 %
[2016-09-28 16:12] LABS: Lymphocytes # 1.5 K/mcL (0.6-4.6); Monocytes # 0.7 K/mcL (0.0-1.3)
[2016-09-28 16:26] LABS: Anisocytosis 3+ (Not Present); Hypochromasia Present (Not Present); Microcytosis Present (Not Present); Platelet Estimate Normal (Normal); Polychromasia 1+ (Not Present)
[2016-09-29 05:06] LABS: Lymphocytes % 19.9 %
[2016-09-29 05:08] LABS: Basophils # 0.1 K/mcL (0.0-0.2); Basophils % 0.9 %; Eosinophils # 0.3 K/mcL (0.0-0.6); Eosinophils % 3.3 %; Hematocrit 31.5 % (37.5-50.1); Hemoglobin 8.5 g/dL (12.9-16.9); Immature Granulocytes % 0.5 % (0-4); Mean Corpuscular Hemoglobin 18.7 pg (28.0-33.3); Mean Corpuscular Volume 69.4 fL (83.0-100.0); Mean Platelet Volume 9.8 fL (9.4-12.4); Monocytes # 0.8 K/mcL (0.0-1.3); Neutrophils # 6.7 K/mcL (1.6-8.9); Platelet Count 316 K/mcL (140-400); Red Blood Count 4.54 M/mcL (4.19-5.50); Red Cell Distribution Width 25.6 % (11.5-14.5); Segmented Neutrophils % 67.4 %
[2016-09-29 05:27] LABS: BUN/Creatinine Ratio 9 (6-26); Blood Urea Nitrogen 11 mg/dL (8-26); Calcium 9.3 mg/dL (8.6-10.8); Carbon Dioxide 26 mEq/L (19-29); Chloride 105 mEq/L (98-109); Glucose 93 mg/dL (70-99); Osmolality,Calculated 287 (280-300); Potassium 4.1 mEq/L (3.5-4.5); Sodium 139 mEq/L (136-145); eGFR For African Americans > 60 (> 60); eGFR For Non-African Americans 55 (> 60)
[2016-09-29 05:47] LABS: Anisocytosis 3+ (Not Present); Hypochromasia Present (Not Present)
[2016-09-29 05:48] LABS: Microcytosis Present (Not Present); Platelet Estimate Normal (Normal); Polychromasia 1+ (Not Present)
--- NOTE | 2016-09-29 06:36 | Discharge Summary ---
<CarolinaOlivier - Last Filed: 09/29/16 06:27> Date of Encounter: 09/29/16 Time of Encounter: 06:28 - Discharge Diagnosis (1) JORGE (dyspnea on exertion) Priority: Primary Status: Acute (2) Symptomatic anemia Priority: Secondary Status: Acute (3) GI bleed Priority: Secondary Status: Acute Qualifiers: GI bleed type/associated pathology: unspecified gastrointestinal hemorrhage type Qualified Code(s): K92.2 - Gastrointestinal hemorrhage, unspecified (4) Hypertension Priority: Secondary Status: Acute Qualifiers: Hypertension type: essential hypertension Qualified Code(s): I10 - Essential (primary) hypertension (5) CKD (chronic kidney disease) stage 3, GFR 30-59 ml/min Priority: Secondary Status: Acute (6) DVT prophylaxis Priority: Secondary Status: Acute - Discharge Medications Prescriptions: Cyanocobalamin (B-12) [Vitamin B12] 1,000 mcg PO DAILY #30 tab Docusate [Colace] 100 mg PO BID PRN #60 tab PRN Reason: Constipation Ferrous Sulfate 325 mg PO BIDWM #60 tab Lisinopril [Zestril] 10 mg PO DAILY #30 tab Home Medications: Cyanocobalamin (B-12) [Vitamin B12] 1,000 mcg PO DAILY #30 tab 09/29/16 [Rx] Docusate [Colace] 100 mg PO BID PRN #60 tab 09/29/16 [Rx] Ferrous Sulfate 325 mg PO BIDWM #60 tab 09/29/16 [Rx] Lisinopril [Zestril] 10 mg PO DAILY #30 tab 09/29/16 [Rx] Allergies/Adverse Reactions: Allergies No Known Allergies Allergy (Verified 09/26/16 20:56) Date of admission: 09/26/16 22:47 Primary care physician: Deborah Hodges Consults: 09/26/16 22:59 Consult to Gastroenterology [CONS] Routine Consulting Provider: Gastroentershelton Kolb Reason for Consult: GI bleed Call Completed: No 09/26/16 23:08 Consult to [employer] [CONS] Routine Reason for SW Consult: dc planning - Patient Status Disposition: Home, Self-Care Condition: Good Functional capacity at discharge: independent ambulation Overall status at discharge: patient is progressing back to baseline - Discharge Instructions Instructions: Anemia (GEN) Follow Up With: Deborah Hodges MD [Primary Care Provider] - 10/09/16 9:15 am (Please follow up as scehdule...) Additional Instructions: Take iron, B12 supplements and blood pressure medicine as prescribed until follow up with primary care doctor follow up with primary care doctor within 1 week of discharge please return to emergency department if you develop bloody stools, shortness of breath, or chest pain. - Diet and Activity Activity: increase activity as tolerated Diet: low fat, low cholesterol, low salt diet Hospital course: Mr. Gaming is a 71 year old male with PMHx of HTN, infrarenal aortic aneurysm, CKD stage 3. Patient presented to emergency department at [facility] on 09/26/16 with chief complaint of dyspnea on exertion and lightheadedness. He had a positive stool occult blood and Hg of 6.4 and was admitted for further workup. Patient had total of 2 units of packed red blood cells transfused and had EGD/ colonoscopy done while inpatient. EGD showed two non bleeding angioectasias at the gastric body which were coagulated. Colonoscopy showed three sessile non bleeding polyps at the hepatic flexure that were removed, pathology report pending. There was also diverticulosis present in the sigmoid colon, recommendation is repeat colonoscopy in 3 years for surveillance. Patient was monitored after his procedure for any further signs of bleeding. He was started on iron and B12 supplements. Of note, patient stated that he stopped taking all of his medications several months ago, and was educated on the importance of medication compliance in setting of his CKD and hypertension. Patient had no further signs of bleeding or anemia after his procedure. He was stable throughout the course of his hospital stay and remained stable until discharge. Take iron, B12 supplements and blood pressure medicine as prescribed until follow up with primary care doctor follow up with primary care doctor within 1 week of discharge please return to emergency department if you develop bloody stools, shortness of breath, or chest pain. repeat colonoscopy in three years recommended. - Time Spent with Patient Total time spent providing and/or coordinating discharge services: - Constitutional Vitals: Temp Pulse Resp BP Pulse Ox 98.1 F 77 16 150/75 92 09/29/16 05:02 09/29/16 05:02 09/29/16 05:02 09/29/16 05:02 09/29/16 05:02 General appearance: Present: A&O X 3, pleasant, no acute distress, answers questions appropriately - Head Head exam: Present: atraumatic, normocephalic - Eye Additional comments: mild conjunctival pallor - Neck Neck exam general surgery: Present: supple, trachea midline - Respiratory Respiratory exam: Present: CTAB - Cardiovascular Cardiovascular exam: Present: RRR, +S1, +S2 - GI/Abdominal Additional comments: firm, non distended, non tender, positive bowel sounds - Extremities Exam Extremities exam: Absent: cyanotic, pedal edema - Neurological Exam Neurological exam: Present: alert, oriented X3, no focal deficits - Psychiatric Psychiatric exam: Present: normal affect, normal mood - Skin Skin exam: Present: intact <Luis Miguel Henry - Last Filed: 09/29/16 16:08> Date of Encounter: 09/29/16 - Discharge Diagnosis (1) 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 Priority: Primary Status: Acute (2) Posthemorrhagic anemia Priority: Primary Status: Acute (3) CKD (chronic kidney disease) stage 3, GFR 30-59 ml/min Status: Chronic (4) Hypertension Status: Chronic Qualifiers: Hypertension type: essential hypertension Qualified Code(s): I10 - Essential (primary) hypertension (5) JORGE (dyspnea on exertion) Priority: Primary Status: Acute (6) Abdominal aortic aneurysm Priority: Secondary Status: Chronic Qualifiers: Presence of rupture: without rupture Qualified Code(s): I71.4 - Abdominal aortic aneurysm, without rupture Date of admission: 09/26/16 22:47 Primary care physician: Deborah Hodges Consults: 09/26/16 22:59 Consult to Gastroenterology [CONS] Routine Consulting Provider: Gastroenterology Kennedi Reason for Consult: GI bleed Call Completed: No 09/26/16 23:08 Consult to [employer] [CONS] Routine Reason for SW Consult: dc planning Hospital course: Mr. Gaming is a 71 year old male - Time Spent with Patient Total time spent providing and/or coordinating discharge services: 32 min - Constitutional Vitals: Temp Pulse Resp BP Pulse Ox 98.1 F 83 16 148/74 95 09/29/16 07:33 09/29/16 07:33 09/29/16 07:33 09/29/16 07:33 09/29/16 08:12 - Attending Attestation I examined this patient and my medical decision-making was reviewed with the Resident Physician on 09/29/16. I agree with the documented findings, disposition and treatment plan as described except to the extent set forth below. Mr. Gaming originally admitted for acute symptomatic anemia. Underwent endoscopy and found to have AVMs and cauterized. Today he feels well. He is afebrile with stable vitals and is ready for discharge home. Exam Alert. Comfortable Mucus membranes moist Heart reg No wheeze Abd soft No edema Plan D/C home today. Follow up as outpatient.
[2016-09-29 07:36] VITALS: BP 148/74
[2016-09-29] MEDS: Cyanocobalamin (B-12) 1,000 MCG TABLET PO SCH (08:51)
== END 2016-09-29 10:04 | disposition home or self-care (01) ==
LOC: EMEROO 20:05 → 2ANU 20:05 → SUATTDRO 22:47 → 2ANU 23:02
PROVIDERS: ADMIT Family Medicine; ATTEND Internal Medicine

== ENCOUNTER 2020-05-13 17:09 | Observation (INO) ==
[2020-05-13] MEDS ORDERED: Naloxone 0.4 MG/ML INJ IVP PRN (22:10)
[2020-05-13] MEDS: lisinopriL 20 MG TABLET PO SCH (22:47)
[2020-05-13 23:10] LABS: VBG HCO3 24 mEq/L (21-27); VBG PCO2 42 mmHg (41-51); VBG PH 7.36 pH Units (7.32-7.42); VBG PO2 68 mmHg (25-50)
[2020-05-14 03:04] LABS: Basophils # 0.1 K/mcL (0.0-0.2); Basophils % 0.8 %; Eosinophils # 0.2 K/mcL (0.0-0.6); Eosinophils % 2.1 %; Hematocrit 45.4 % (37.5-50.1); Hemoglobin 14.7 g/dL (12.9-16.9); Immature Granulocytes % 0.3 % (0-4); Lymphocytes # 1.8 K/mcL (0.6-4.6); Lymphocytes % 19.8 %; Mean Corpuscular HGB Conc 32.4 g/dL (31.6-35.5); Mean Corpuscular Hemoglobin 31.1 pg (28.0-33.3); Mean Platelet Volume 9.9 fL (9.4-12.4); Monocytes # 0.9 K/mcL (0.0-1.3); Monocytes % 9.4 %; Neutrophils # 6.3 K/mcL (1.6-8.9); Platelet Count 229 K/mcL (140-400); Red Blood Count 4.73 M/mcL (4.19-5.50); Red Cell Distribution Width 12.1 % (11.5-14.5); Segmented Neutrophils % 67.6 %; White Blood Count 9.3 K/mcL (4.3-11.1)
[2020-05-14 03:11] LABS: INR 1.2; Prothrombin Time 13.4 Seconds (9.4-12.1)
[2020-05-14 03:14] LABS: Activated Partial Thrombo Time 31.2 Seconds (26.0-36.0)
[2020-05-14 03:24] LABS: BUN/Creatinine Ratio 13 (6-26); Blood Urea Nitrogen 12 mg/dL (8-23); Calcium 9.2 mg/dL (8.6-10.3); Carbon Dioxide 28 mEq/L (23-29); Chloride 105 mEq/L (98-107); Chol/HDL Ratio 5.6 (0-4.9); Cholesterol 162 mg/dL (< 200); Glucose 110 mg/dL (70-105); HDL Cholesterol 29 mg/dL (40-59); LDL Cholesterol,Calculated 94 mg/dL (< 100); Magnesium 2.1 mg/dL (1.6-2.6); Osmolality,Calculated 288 (280-300); Phosphorous 2.9 mg/dL (2.7-4.5); Potassium 4.1 mEq/L (3.5-5.1); Sodium 139 mEq/L (136-145); Triglycerides 196 mg/dL (< 150); eGFR For African Americans > 60 (> 60); eGFR For Non-African Americans > 60 (> 60)
[2020-05-14 04:29] LABS: ABG Base Excess 3 mEq/L (-2 to 3); ABG HCO3 28 mEq/L (21-27); ABG Oxygen Saturation 94 % (95-98); ABG PCO2 46 mmHg (35-45); ABG PH 7.39 pH Units (7.32-7.45); ABG PO2 72 mmHg (85-104); ABG TCO2 30 mEq/L (20-26)
[2020-05-14] MEDS: *HR* Heparin 5,000 UNIT/ML VIAL SQ SCH ×3 (05:02→20:39)
[2020-05-14] MEDS ORDERED: Regadenoson 0.4 MG/5 ML SYRINGE IVP ONE (06:24)
[2020-05-14] MEDS: lisinopriL 20 MG TABLET PO SCH ×2 (09:25→20:35)
[2020-05-14] MEDS: Loratadine 10 MG TABLET PO SCH (09:25)
[2020-05-14] MEDS: Acetaminophen 325 MG TABLET PO PRN ×2 (09:34→20:38)
[2020-05-14] MEDS: Metoprolol XL (24 HR) Succ 25 MG TAB.ER.24H PO SCH (12:24)
[2020-05-14] MEDS: Aspirin 81 MG TAB.CHEW PO SCH (12:24)
[2020-05-14] MEDS ORDERED: NON-FORMULARY MEDICATION 1 EACH EACH (Lisinopril [Zestril] 40 MG Tablet) PO SCH (21:00)
[2020-05-15] MEDS: *HR* Heparin 5,000 UNIT/ML VIAL SQ SCH (05:32)
[2020-05-15] MEDS: Aspirin 81 MG TAB.CHEW PO SCH (07:45)
[2020-05-15] MEDS: lisinopriL 20 MG TABLET PO SCH (07:45)
[2020-05-15] MEDS: Metoprolol XL (24 HR) Succ 25 MG TAB.ER.24H PO SCH (07:46)
[2020-05-15] MEDS: Loratadine 10 MG TABLET PO SCH (07:46)
[2020-05-15] MEDS: Acetaminophen 325 MG TABLET PO PRN (07:46)
[2020-05-15 10:51] VITALS: BP 148/84
== END 2020-05-15 12:59 | disposition home or self-care (01) ==
LOC: 3BNU → SUATTDRO 20:05
PROVIDERS: ADMIT Internal Medicine; ATTEND Registered Nurse